=== PATIENT | male | born 1995 | race Caucasian/White ===

== ENCOUNTER 2019-03-14 20:07 | Emergency (ER) | payer OTHER, BC ==
[2019-03-14] MEDS ORDERED: Lidocaine 1% 10 ML MDV INJECT ONE (20:16)
--- NOTE | 2019-03-14 20:42 | EDM.PDOC ---
ED HPI GENERAL MEDICAL PROBLEM - General Chief Complaint: Laceration Stated Complaint: RIGHT MIDDLE FINGER CUT OPEN Time Seen by Provider: 03/14/19 20:16 Source of Information: Reports: Patient History Limitations: Reports: No Limitations - History of Present Illness INITIAL COMMENTS - FREE TEXT/NARRATIVE: Patient is an unfortunate 23-year-old male who presents emergency Department today with complaint of laceration to right middle finger. Patient was in his normal state of health until approximately 20 minutes prior to arrival he got his finger caught in a truck that which caused laceration over the DIP joint of the volar aspect of his right middle finger. This is a partial dermis thickness no active bleeding no foreign body noted distal neurovascular is intact no tendon dysfunction noted Right Finger-Middle Pain Score (Numeric/FACES): 2 - Related Data Allergies Allergy/AdvReac Type Severity Reaction Status Date / Time ORANGE MOTRIN Allergy Hives Uncoded 03/14/19 20:21 Home Meds: Home Meds Dextroamphetamine/Amphetamine [Adderall 20 mg Tablet] 11/19/13 [History] Escitalopram [Lexapro] 20 mg PO DAILY 11/19/13 [History] Loratadine [Claritin] 10 mg PO 11/19/13 [History] guanFACINE HCl [Intuniv] 4 mg PO 11/19/13 [History] traZODone 50 mg PO BEDTIME 11/19/13 [History] Past Medical History Respiratory History: Reports: Asthma Psychiatric History: Reports: ADHD, Anxiety, Autism, Depression - Past Surgical History HEENT Surgical History: Reports: Other (See Below) Other HEENT Surgeries/Procedures: wisdom teeth removed Social & Family History - Family History Family Medical History: Noncontributory - Tobacco Use Smoking Status *Q: Never Smoker - Caffeine Use Caffeine Use: Reports: Coffee, Energy Drinks ED ROS GENERAL - Review of Systems Review Of Systems: See Below Musculoskeletal: Reports: Other (Laceration) ED EXAM, SKIN/RASH Exam: See Below General Appearance: Alert, WD/WN, Mild Distress Respiratory/Chest: No Respiratory Distress, Lungs Clear, Normal Breath Sounds, No Accessory Muscle Use, Chest Non-Tender Cardiovascular: Normal Peripheral Pulses, Regular Rate, Rhythm, No Edema, No Gallop, No JVD, No Murmur, No Rub GI/Abdominal: Normal Bowel Sounds, Soft, Non-Tender, No Organomegaly, No Distention, No Abnormal Bruit, No Mass Extremities: Other (Once an meter linear laceration partial dermis thickness no active bleeding no foreign body noted over the PIP joint of the right middle finger volar aspect distal neurovascular is intact no tendon dysfunction noted) Neurological: Alert Skin: Warm, Dry, No Rash ED SKIN PROCEDURES - Additional/Other Procedure(s) Other (Free Text) Procedure(s): Laceration repair: Betadine prep, local anesthesia lidocaine 1% to amounts, once an meter linear laceration, wound was closed with 4-0 Ethilon #3 running sutures patient tolerated procedure well dressing by nursing Course - Vital Signs Last Recorded V/S: Last Vital Signs Temp 98.0 F 03/14/19 20:17 Pulse 88 03/14/19 20:17 Resp 18 03/14/19 20:17 BP 130/70 03/14/19 20:17 Pulse Ox 98 03/14/19 20:17 - Orders/Labs/Meds Orders: Active Orders 24 hr Category Date Time Status Communication Order [RC] ASDIRECTED Care 03/14/19 20:29 Ordered DME for Discharge [COMM] Stat Oth 03/14/19 20:29 Ordered Meds: Medications Discontinued Medications Generic Name Dose Route Start Last Admin Trade Name Freq PRN Reason Stop Dose Admin Lidocaine HCl 10 ml 03/14/19 20:16 Xylocaine 1% INJECT 03/14/19 20:17 ONETIME ONE Departure - Departure Time of Disposition: 20:44 Disposition: Home, Self-Care 01 Clinical Impression: Laceration of finger - Discharge Information Referrals: Angelo Bailey MD [Primary Care Provider] - Additional Instructions: Home, rest, keep wound clean and dry, clean wound daily apply Neosporin bandage , sutures out in 5-7 days, return as needed for worsening condition Sepsis Event Note - Evaluation Sepsis Screening Result: No Definite Risk - Focused Exam Vital Signs: Vital Signs Temp Pulse Resp BP Pulse Ox 03/14/19 20:17 98.0 F 88 18 130/70 98 Date Exam was Performed: 03/14/19 Time Exam was Performed: 20:29 - My Orders Last 24 Hours: My Active Orders 03/14/19 20:29 Communication Order [RC] ASDIRECTED DME for Discharge [COMM] Stat - Assessment/Plan Last 24 Hours: My Active Orders 03/14/19 20:29 Communication Order [RC] ASDIRECTED DME for Discharge [COMM] Stat
== END 2019-03-14 21:10 | disposition home or self-care (01) ==
LOC: JD.ED 20:07
DX: S61.212A Laceration without foreign body of right middle finger without damage to nail, initial encounter (principal); F41.9 Anxiety disorder, unspecified; F32.9 Major depressive disorder, single episode, unspecified; F90.9 Attention-deficit hyperactivity disorder, unspecified type; Z88.8 Allergy status to other drugs, medicaments and biological substances; Z79.899 Other long term (current) drug therapy; W23.0XXA Caught, crushed, jammed, or pinched between moving objects, initial encounter
CPT/HCPCS: 12001; 99282; J2001

== ENCOUNTER 2024-01-24 07:05 | Day surgery (SDC) | payer MEDICARE, MEDICAID ==
[~2024-01-24 07:05] MED LIST: Lidocaine 1% 4 ML ONE; Lidocaine 1% PF 2 ML SDV ONE; Midazolam 1 MG/ML 2 ML SDV ONE; Propofol 200 MG/20 ML SDV ONE; Sodium Chloride 0.9% 10 ML Syringe FLUSH PRN; Sodium Chloride 0.9% 10 ML Syringe FLUSH SCH; fentaNYL 100 MCG/2 ML SDV ONE
[2024-01-24] MEDS: Lactated Ringers 1,000 ML IV SCH (07:54)
[2024-01-24] MEDS ORDERED: Propofol 200 MG/20 ML SDV ONE (08:01)
== END 2024-01-24 09:32 | disposition home or self-care (01) ==
LOC: JD.SDS 07:05
PROVIDERS: ATTEND Surgery
DX: K21.00 Gastro-esophageal reflux disease with esophagitis, without bleeding (principal); K29.50 Unspecified chronic gastritis without bleeding; K29.80 Duodenitis without bleeding; K52.9 Noninfective gastroenteritis and colitis, unspecified; J45.909 Unspecified asthma, uncomplicated; F41.9 Anxiety disorder, unspecified; F32.A Depression, unspecified; Z79.899 Other long term (current) drug therapy; Z91.048 Other nonmedicinal substance allergy status
CPT/HCPCS: 43239; 45380; J2250; J2704; J3010; J7120; 00813; J3490